=== PATIENT | female | born 1935 | race Caucasian/White ===

== ENCOUNTER 2016-04-01 12:18 | Emergency (ER) | payer OTHER ==
[~2016-04-01] VITALS: Ht 160 cm; Wt 45.4 kg
[~2016-04-01 12:18] MED LIST: VITAMIN D250000 UNIT PO
--- NOTE | 2016-04-01 15:31 | ED UPPER/LOWER EXTREMITY COMPL ---
History of Present Illness General Chief Complaint: General Adult Stated Complaint: RIGHT LEG PAIN "CANT WALK" Source: patient, family Exam Limitations: no limitations Allergies Coded Allergies: NO KNOWN ALLERGIES (10/27/15) No Known Drug Allergies (04/01/16) Triage Note: C/O PAIN IN RIGHT LEGT FROM HIP TO TOES, Triage Nurses Notes Reviewed? yes HPI: 81 YO FEMALE WITH HX OF OA WITH CO 2 DAYS OF R LATERAL HIP PAIN/LOW BACK PAIN, R LEG PAIN AND R ANKLE PAIN. NO TRAUMA, NO INJURY. SHE HAS PAIN WITH WALKING AND STATES SHE CAN NOT WALK TODAY. TOOK CODEINE LAST NIGHT WITH MINIMAL RELIEF. NO PAIN AT REST. SHE HAD AN XRAY IN SEPTEMBER OF THE L HIP THAT WAS NEGATIVE FOR HIP ARTHRITIS BUT LUMBAR FACET ARTHRITIS WAS NOTED. SHE WAS SENT TO SNF SHE COULD NOT WALK. TODAY SHE HAS SIMILAR SX ON THE R LEG. SHE HAD AN EPISODE OF BACK PAIN 1 MONTH AGO AND WAS TREATED WITH DICLOFENAC WHICH RESOLVED HER SYMPTOMS. SHE IS NOT ON NSAIDS AT THIS TIME. (JOHNNY COOPER) Vital Signs & Intake/Output Vital Signs & Intake/Output Vital Signs Date Time Temp Pulse Resp B/P Pulse O2 O2 Flow FiO2 Ox Delivery Rate 04/01 1732 98.8 84 20 160/92 96 Room Air 04/01 1232 95.5 86 20 138/95 99 Room Air Reconcile Medications Diclofenac Potassium 50 MG TABLET 1 TAB PO BID PRN PAIN Ergocalciferol (Vitamin D2) (Vitamin D2) 50,000 UNIT CAPSULE 1 CAP PO Q30D SUPPLEMENT (Reported) (CHANG CALVILLO,SANG Cabral) Past History Travel History Traveled to [place] past 21 day No Medical History Any Pertinent Medical History? see below for history Neurological: NONE EENT: NONE Cardiovascular: NONE Respiratory: NONE Gastrointestinal: NONE Hepatic: NONE Renal: NONE Musculoskeletal: osteoarthritis Psychiatric: NONE Endocrine: NONE Blood Disorders: NONE Surgical History Surgical History: non-contributory Psychosocial History What is your primary language Thai Tobacco Use: Never used ETOH Use: denies use Family History Hx Contributory? No (JOHNNY COOPER) Review of Systems Review of Systems Constitutional: Reports: see HPI. EENTM: Reports: no symptoms. Respiratory: Reports: no symptoms. Cardiovascular: Reports: no symptoms. Gastrointestinal/Abdominal: Reports: no symptoms. Genitourinary: Reports: no symptoms. Musculoskeletal: Reports: see HPI. Skin: Reports: no symptoms. Neurological/Psychological: Reports: no symptoms. Hematologic/Endocrine: Reports: no symptoms. Immunological: Reports: no symptoms. All Other Systems: Reviewed and Negative (JOHNNY COOPER) Physical Exam Physical Exam General Appearance: well developed/nourished Comments: Well-developed well-nourished no apparent distress. HEENT: Atraumatic, extraocular motion intact Neck: Supple, no lymphadenopathy Back: Nontender, full range of motion Respiratory: No respiratory distress Abdomen: Soft nontender nondistended Extremities: No edema, full range of motion Mild tenderness in the right lateral posterior pelvic region, right greater than trochanter region. Internal/external rotation of the hip results in mild pain to the right lateral hip with external rotation. She has no limited internal rotation. The knee and ankle exam is benign, she has full range of motion, neurovascularly intact Neuro: Alert and oriented x3 Psych: Mood affect normal, normal memory normal judgment. Skin: Warm and dry, no rash on exposed skin (JOHNNY COOPER) Progress Differential Diagnosis: arterial insufficiency, cellulitis, CHF, compartment syndrome, contusion, dislocation, DVT, fracture, gout, septic arthritis, sprain, tendon injury Plan of Care: Orders Procedure Date/time Status XRY-LUMBOSACRAL SPINE AP & LAT 04/01 1538 Active XRY-HIP 2-3 VIEWS, RIGHT 04/01 153 Active Current Medications Sig/Evelyn Start time Last Medication Dose Stop Time Status Admin Ketorolac 30 MG ONCE ONE 04/01 1545 UNVr Tromethamine 04/01 1546 (Toradol) Diagnostic Imaging: Viewed by Me: Radiology Read. Discussed w/RAD: Radiology Read. Radiology Impression: PATIENT: PRANAV CARMICHAEL PRESENT AGE: 81 PATIENT ACCOUNT NO: [id number] : 34 LOCATION: [facility] ORDERING PHYSICIAN: JOHNNY BENSON SERVICE DATE: 04/01/16 EXAM TYPE: RAD - XRY-HIP 2-3 VIEWS, RIGHT; XRY-LUMBOSACRAL SPINE AP & LAT EXAMINATION: XR LUMBOSACRAL SPINE XR HIP, RIGHT CLINICAL INFORMATION: Right hip pain COMPARISON: CT abdomen pelvis 01/20/2011 TECHNIQUE: 2 views of the lumbosacral spine. 2 views of the right hip. FINDINGS: Lumbosacral spine: Osseous alignment appears anatomic. Vertebral body heights are maintained. There is disc space narrowing at L2-L3, L3-L4, L4-L5, and L5-S1 with associated degenerative endplate changes. No acute fracture is seen. The sacroiliac joints are intact. Right hip: Osseous alignment is anatomic. Mild joint space narrowing is noted. The femoral head contour is maintained. No significant osteophytosis. No evidence of acute fracture. IMPRESSION: 1. Lumbosacral spine: Moderate degenerative change of the lumbar spine. 2. Right hip: Mild joint space narrowing. DICTATED BY: JESSICA CAPUTO MD DATE/TIME DICTATED:04/01/161555 ELEVATING GRADER OPERATOR:CLARA DATE/TIME TRANSCRIBED:04/01/161555 Comments: Patient given 30 mg Toradol IM and Tylenol with codeine. She was able to ambulate with minimal difficulty She was seen by case packer and we will set up home services for for physical therapy, she was referred to an orthopedist, will treat her with anti- inflammatory medication as outpatient and she has tolerated with codeine at home. She is stable for discharge home, discussed with Dr. Sheehan. (JOHNNY COOPER) Departure Departure Disposition: HOME OR SELF CARE Condition: Stable Clinical Impression Primary Impression: Sciatica associated with disorder of lumbar spine Referrals: BRISEIDA CALVILLO,JUAN DAVID Kelly (PCP/Family) ATTILA CALVILLO,LOLITA Huang Additional Instructions: Take medications for pain and inflammation as needed. Rest, warm compresses, gentle stretching. Follow-up with orthopedist if no better in the next 5-7 days. Watch for worsening symptoms of pain, numbness or weakness down the leg, return with any concerns. Departure Forms: Customer Survey General Discharge Information Prescriptions: Current Visit Scripts Diclofenac Potassium 1 TAB PO BID PRN PAIN #30 TAB (JOHNNY COOPER) PA/MARKETING PROGRAMS SPECIALIST Co-Sign Statement Statement: ED Attending supervision documentation- [X] I saw and evaluated the patient. I have also reviewed all the pertinent lab results and diagnostic results. I agree with the findings and the plan of care as documented in the PA's/MARKETING PROGRAMS SPECIALIST's documentation. [] I have reviewed the ED Record and agree with the PA's/MARKETING PROGRAMS SPECIALIST's documentation. [] Additions or exceptions (if any) to the PAs/MARKETING PROGRAMS SPECIALIST's note and plan are summarized below: [] (CHANG CALVILLO,SANG Marr
--- NOTE | 2016-04-01 16:07 | RADIOLOGY REPORT ---
EXAMINATION: XR LUMBOSACRAL SPINE XR HIP, RIGHT CLINICAL INFORMATION: Right hip pain COMPARISON: CT abdomen pelvis 01/20/2011 TECHNIQUE: 2 views of the lumbosacral spine. 2 views of the right hip. FINDINGS: Lumbosacral spine: Osseous alignment appears anatomic. Vertebral body heights are maintained. There is disc space narrowing at L2-L3, L3-L4, L4-L5, and L5-S1 with associated degenerative endplate changes. No acute fracture is seen. The sacroiliac joints are intact. Right hip: Osseous alignment is anatomic. Mild joint space narrowing is noted. The femoral head contour is maintained. No significant osteophytosis. No evidence of acute fracture. IMPRESSION: 1. Lumbosacral spine: Moderate degenerative change of the lumbar spine. 2. Right hip: Mild joint space narrowing.
[2016-04-01] MEDS ORDERED: DICLOFENAC POTA50 M1 PO (17:17)
[2016-04-01 17:32] VITALS: BP 160/92
--- NOTE | 2016-04-01 17:45 | NUR ---
Case Mgmnt TSF: I called [facility] after meeting with patient. I asked for set up of services. They will look into availability and call me back. CM continuing to follow.
--- NOTE | 2016-04-01 18:20 | NUR ---
Case Mgmnt TSF: I was called back by [facility] and they will be able to accept the patient on service on Tuesday for nursing and home pt. They stated that if they get a cancellation on Tuesday they will fit the patient in for services. I will call the patient and make her aware of this. CM continuing to follow.
--- NOTE | 2016-04-01 18:45 | NUR ---
Case Mgmnt TSF: I placed a call to patient's home to ask her to call me back. I left a basic message for call back. CM continuing to follow.
--- NOTE | 2016-04-01 19:31 | NUR ---
Case Mgmnt TSF: Patient called back and I updated as to when agency would go out and if there was a cancellation it would be sooner. They are fine with plan at this time.
== END 2016-04-01 17:35 ==
LOC: ERH 12:18
DX: M51.17 Intervertebral disc disorders with radiculopathy, lumbosacral region (principal)
CPT/HCPCS: 72100; 73502-RT; 96372; J1885

== ENCOUNTER 2016-04-25 16:16 | Emergency (ER) | payer OTHER ==
[~2016-04-25] VITALS: Ht 160 cm; Wt 53.5 kg
[~2016-04-25 16:16] MED LIST changes: +DICLOFENAC POTA50 M1 PO
--- NOTE | 2016-04-25 17:04 | ED GI/GU/ABDOMINAL COMPLAINT ---
History of Present Illness General Chief Complaint: Abdominal Pain/Flank Pain Stated Complaint: ABD PAIN Source: patient, family, old records Exam Limitations: no limitations Vital Signs & Intake/Output Vital Signs & Intake/Output Vital Signs Date Time Temp Pulse Resp B/P Pulse O2 O2 Flow FiO2 Ox Delivery Rate 04/25 1921 97.4 91 22 146/78 95 Room Air 04/25 1733 Room Air Room Air 04/25 1626 98.4 98 18 155/100 98 Room Air Allergies Coded Allergies: NO KNOWN ALLERGIES (10/27/15) No Known Drug Allergies (04/01/16) Reconcile Medications Ciprofloxacin HCl 500 MG TABLET 1 TAB PO BID UTI (Reported) Ergocalciferol (Vitamin D2) (Vitamin D2) 50,000 UNIT CAPSULE 1 CAP PO Q30D SUPPLEMENT (Reported) Triage Note: PT TO ER C/C DIFFUSE ABD PAIN INTERMITTENT SINCE TUESDAY. WENT TO WALK IN CLINIC ON TUESDAY, DIAGNOSED W/ UTI AND STARTED ON CIPRO. STATES NO CHANGE IN SYMPTOMS. + MILD NAUSEA. DENIES V/D, DENIES URINARY PAIN OR FREQUENCY. DENIES FEVERS Triage Nurses Notes Reviewed? yes ? n Is pt currently ? No HPI: Patient is an 81-year-old female presents complaining of diffuse lower abdominal pain. Patient began with left-sided abdominal pain onset on . Tuesday patient was seen at an urgent care clinic, had a urinalysis which was reportedly positive for urinary tract infection, started on ciprofloxacin and instructed to come to the emergency department if any worsening. Patient reports that she felt improved for one day then today her pain worsen. Patient has had 2 bowel movements today which were reportedly normal. Patient denies fevers, chills, nausea, vomiting, dysuria, hematuria, frequency, urgency. (JOHNNY MORIN) Past History Travel History Traveled to [place] past 21 day No Medical History Any Pertinent Medical History? see below for history Neurological: NONE EENT: NONE Cardiovascular: NONE Respiratory: NONE Gastrointestinal: diverticulosis Hepatic: NONE Renal: NONE Musculoskeletal: osteoarthritis Psychiatric: NONE Endocrine: NONE Blood Disorders: NONE Influenza Vaccine: 01/09/16 Surgical History Surgical History: non-contributory Psychosocial History What is your primary language Urdu Tobacco Use: Never used Family History Hx Contributory? No (JOHNNY MORIN) Review of Systems Review of Systems Constitutional: Denies: chills, fever. EENTM: Reports: no symptoms. Respiratory: Denies: cough, short of breath. Cardiovascular: Denies: chest pain. GI: Reports: see HPI. Genitourinary: Denies: dysuria, frequency, hematuria. Musculoskeletal: Denies: back pain. Skin: Reports: no symptoms. Neurological/Psychological: Reports: no symptoms. Hematologic/Endocrine: Reports: no symptoms. Immunologic/Allergic: Reports: no symptoms. (JOHNNY MORIN) Physical Exam Physical Exam General Appearance: well developed/nourished, alert, awake Head: atraumatic, normal appearance Eyes: Bilateral: normal appearance, PERRL, EOMI. Ears, Nose, Throat, Mouth: hearing grossly normal, moist mucous membrane Neck: normal inspection, supple, full range of motion Respiratory: normal breath sounds, no respiratory distress, lungs clear Cardiovascular: regular rate/rhythm Gastrointestinal: normal bowel sounds, soft, mild diffuse lower abdominal tenderness. No rebound, rigidity, guarding Back: normal inspection, normal range of motion Extremities: normal range of motion Neurologic/Psych: no motor/sensory deficits, awake, alert, oriented x 3, normal gait, normal mood/affect Skin: intact, normal color, warm/dry Core Measures ACS in differential dx? No Severe Sepsis Present: No Septic Shock Present: No (JOHNNY MORIN) Progress Differential Diagnosis: AAA, bowel obstruction, cholecystitis, diverticulitis, gastritis, hepatitis, ischemic bowel, inflamm bowel dis, kidney stone, ovarian cyst, ovarian torsion, perforated viscous, UTI/pyelo Plan of Care: Orders Procedure Date/time Status URINALYSIS 04/25 1708 Complete LIPASE 04/25 1708 Complete LACTIC ACID 04/25 1708 Complete COMPREHENSIVE METABOLIC PANEL 04/25 1708 Complete CBC WITHOUT DIFFERENTIAL 04/25 1708 Complete AMYLASE 04/25 1708 Complete EKG 04/25 161 Active Laboratory Tests 04/25/16 2009: Lactic Acid Cancelled 04/25/16 1725: Anion Gap 10, Estimated GFR > 60, BUN/Creatinine Ratio 28.8 H, Glucose 92, Lactic Acid 0.7, Calcium 9.4, Total Bilirubin 0.5, AST 30, ALT 33, Alkaline Phosphatase 57, Total Protein 7.2, Albumin 3.9, Globulin 3.3, Albumin/Globulin Ratio 1.2, Amylase 104, Lipase 300, CBC w Diff NO MAN DIFF REQ, RBC 4.64, MCV 85.0, MCH 28.3, RDW 13.8, MPV 8.2, Gran % 71.2, Lymphocytes % 19.0 L, Monocytes % 7.8, Eosinophils % 1.3, Basophils % 0.7, Absolute Granulocytes 4.7, Absolute Lymphocytes 1.3, Absolute Monocytes 0.5, Absolute Eosinophils 0.1, Absolute Basophils 0, PUBS MCHC 33.3 04/25/16 1714: Urine Color YEL, Urine Clarity CLEAR, Urine pH 6.5, Ur Specific [place] 1.020, Urine Protein NEG, Urine Ketones NEG, Urine Nitrite NEG, Urine Bilirubin NEG, Urine Urobilinogen 0.2, Ur Leukocyte Esterase NEG, Ur Microscopic EXAM NOT REQUIRED, Urine Hemoglobin NEG, Urine Glucose NEG Discussed with Dr. Ramirez. Patient reevaluated multiple times. Results of labs and imaging discussed with patient and her son. No peritoneal signs on exam, labs unremarkable, no acute infectious or surgical abnormalities on CT scan. Patient appears stable for discharge. Discussed bowel regimen with patient and her son and to follow-up with her primary care doctor this week for further evaluation. To return to the emergency department if worsening. (SUYAPA BENSON,JOHNNY) Diagnostic Imaging: Viewed by Me: CT Scan. Discussed w/RAD: CT Scan. Radiology Impression: PATIENT: PRANAV CARMICHAEL PRESENT AGE: 81 PATIENT ACCOUNT NO: [id number] : 34 LOCATION: [facility] ORDERING PHYSICIAN: JOHNNY BENSON SERVICE DATE: 04/25/16 EXAM TYPE: CAT - CT ABD & PELVIS W IV CONTRAST EXAMINATION: CT ABDOMEN AND PELVIS WITH CONTRAST CLINICAL INFORMATION: Diffuse lower abdominal pain. Evaluate for diverticulitis. COMPARISON: CT abdomen and pelvis 01/20/2011. TECHNIQUE: Multidetector volumetric imaging was performed of the abdomen and pelvis before and after the IV administration of 95 mL of Optiray 320 intravenous contrast. Sagittal and coronal reformatted images were obtained on the technologist's workstation. DLP: 269 mGy-cm. FINDINGS: LUNG BASES: The visualized lung bases are unremarkable. LIVER, GALLBLADDER, AND BILIARY TREE: The liver is normal in size, shape, and attenuation. No focal hepatic lesion or biliary ductal dilatation is present. The gallbladder is contracted, without evidence of radiopaque gallstones, gallbladder wall thickening, or obvious pericholecystic inflammatory changes. PANCREAS: Unremarkable. SPLEEN: Unremarkable. ADRENAL GLANDS: Unremarkable. KIDNEYS AND URETERS: The kidneys are normal in size and enhance homogeneously, without focal lesions. There is no appreciable nephrolithiasis or hydroureteronephrosis of either kidney or renal collecting system. No ureteral stones are identified. BLADDER: Unremarkable. GASTROINTESTINAL TRACT: Limited evaluation of the gastrointestinal system secondary to scant intra-abdominal fat. There is a moderate amount of retained stool throughout the colon, indicative of constipation. There is minimal colonic diverticulosis, without secondary signs of acute diverticulitis. Nonvisualization of the appendix. No acute inflammatory changes within the right hemiabdomen. No organizing intra- abdominal or pelvic fluid collections and no free intraperitoneal air. ABDOMINAL WALL: No significant hernia is appreciated. LYMPH NODES: No significant abdominal or pelvic adenopathy. VASCULAR: Patent abdominal vasculature. Normal course and caliber of the abdominal aorta and its branching vessels, without aneurysmal dilatation. Scattered atherosclerosis of the abdominal aorta and its branching vessels. PELVIC VISCERA: Unremarkable. OSSEOUS STRUCTURES: No acute osseous abnormality. Moderate multilevel degenerative changes of the lumbar spine. Multilevel facet arthrosis. IMPRESSION: Limited exam secondary to scant intra-abdominal fat. There is a moderate amount of retained stool throughout the colon, indicative of constipation. Minimal colonic diverticulosis, without secondary signs of acute diverticulitis. DICTATED BY: AMY MARTINEZ MD DATE/ TIME DICTATED:04/25/161842 CARGO VESSEL STEWARDESS:CLARA DATE/TIME TRANSCRIBED: 04/25/161842 CONFIDENTIAL, DO NOT COPY WITHOUT APPROPRIATE AUTHORIZATION. < Electronically signed in Other Vendor System> SIGNED BY: AMY MARTINEZ MD 04/25/161852 Initial ED EKG: normal sinus rhythm 92 bpm normal axis, normal intervals, minimal ST depression in leads V3 and V4 (JOHNNY MORIN) Departure Departure Time of Disposition: 1911 Disposition: HOME OR SELF CARE Condition: Stable Clinical Impression Primary Impression: Constipation Qualifiers: Constipation type: unspecified constipation type Qualified Code: K59.00 - Constipation, unspecified Secondary Impressions: Abdominal pain Qualifiers: Abdominal location: lower abdomen, unspecified Qualified Code: R10.30 - Lower abdominal pain, unspecified Referrals: BRISEIDA CALVILLO,JUAN DAVID Kelly (PCP/Family) Additional Instructions: Increase your fluid intake. Take Colace as directed. If it has not improved her bowel movements and tomorrow morning started taking MiraLAX as directed. Follow-up with your primary doctor this week for recheck and further evaluation. Return to the emergency department if fevers, increasing pain, vomiting, or worsening of symptoms. Departure Forms: Customer Survey General Discharge Information (JOHNNY MORIN) PA/CAKE PULLER Co-Sign Statement Statement: ED Attending supervision documentation- x I saw and evaluated the patient. I have also reviewed all the pertinent lab results and diagnostic results. I agree with the findings and the plan of care as documented in the PA's/CAKE PULLER's documentation. [] I have reviewed the ED Record and agree with the PA's/CAKE PULLER's documentation. [] Additions or exceptions (if any) to the PAs/CAKE PULLER's note and plan are summarized below: [] (STEPHEN CALVILLO,FRIEDA)
[2016-04-25] MEDS ORDERED: CIPROFLOXACIN500 M2 PO (17:33)
[2016-04-25 17:41] LABS: ABSOLUTE BASOPHIL COUNT 0 /CUMM (0.0-0.2); ABSOLUTE EOSINOPHIL COUNT 0.1 /CUMM (0.0-0.7); ABSOLUTE GRANULOCYTE CT 4.7 /CUMM (1.4-6.5); ABSOLUTE LYMPH COUNT 1.3 /CUMM (1.2-3.4); ABSOLUTE MONOCYTE COUNT 0.5 /CUMM (0.10-0.60); BASOPHIL % 0.7 % (0.0-2.0); EOSINOPHIL % 1.3 % (0-5); GRANULOCYTE % 71.2 % (42.2-75.2); HEMATOCRIT 39.5 % (37-47); MEAN CORPUSCULAR HGB 28.3 PG (27.0-31.0); MEAN CORPUSCULAR HGB CONC 33.3 G/DL (33.0-37.0); MEAN PLATELET VOLUME 8.2 FL (7.4-10.4); PLATELET COUNT 229 /CUMM (130-400); RBC DISTRIBUTION WIDTH 13.8 % (11.5-14.5); RED BLOOD CELL CT 4.64 /CUMM (4.20-5.40); WHITE BLOOD CELL COUNT 6.6 /CUMM (4.8-10.8)
--- NOTE | 2016-04-25 18:53 | CT SCAN REPORT ---
EXAMINATION: CT ABDOMEN AND PELVIS WITH CONTRAST CLINICAL INFORMATION: Diffuse lower abdominal pain. Evaluate for diverticulitis. COMPARISON: CT abdomen and pelvis 01/20/2011. TECHNIQUE: Multidetector volumetric imaging was performed of the abdomen and pelvis before and after the IV administration of 95 mL of Optiray 320 intravenous contrast. Sagittal and coronal reformatted images were obtained on the technologist's workstation. DLP: 269 mGy-cm. FINDINGS: LUNG BASES: The visualized lung bases are unremarkable. LIVER, GALLBLADDER, AND BILIARY TREE: The liver is normal in size, shape, and attenuation. No focal hepatic lesion or biliary ductal dilatation is present. The gallbladder is contracted, without evidence of radiopaque gallstones, gallbladder wall thickening, or obvious pericholecystic inflammatory changes. PANCREAS: Unremarkable. SPLEEN: Unremarkable. ADRENAL GLANDS: Unremarkable. KIDNEYS AND URETERS: The kidneys are normal in size and enhance homogeneously, without focal lesions. There is no appreciable nephrolithiasis or hydroureteronephrosis of either kidney or renal collecting system. No ureteral stones are identified. BLADDER: Unremarkable. GASTROINTESTINAL TRACT: Limited evaluation of the gastrointestinal system secondary to scant intra-abdominal fat. There is a moderate amount of retained stool throughout the colon, indicative of constipation. There is minimal colonic diverticulosis, without secondary signs of acute diverticulitis. Nonvisualization of the appendix. No acute inflammatory changes within the right hemiabdomen. No organizing intra-abdominal or pelvic fluid collections and no free intraperitoneal air. ABDOMINAL WALL: No significant hernia is appreciated. LYMPH NODES: No significant abdominal or pelvic adenopathy. VASCULAR: Patent abdominal vasculature. Normal course and caliber of the abdominal aorta and its branching vessels, without aneurysmal dilatation. Scattered atherosclerosis of the abdominal aorta and its branching vessels. PELVIC VISCERA: Unremarkable. OSSEOUS STRUCTURES: No acute osseous abnormality. Moderate multilevel degenerative changes of the lumbar spine. Multilevel facet arthrosis. IMPRESSION: Limited exam secondary to scant intra-abdominal fat. There is a moderate amount of retained stool throughout the colon, indicative of constipation. Minimal colonic diverticulosis, without secondary signs of acute diverticulitis.
[2016-04-25 19:21] VITALS: BP 146/78
== END 2016-04-25 19:23 ==
LOC: ERH 16:16
PROVIDERS: Physician Assistant
DX: K59.00 Constipation, unspecified (principal)
CPT/HCPCS: 74177; 81003; 93005; 93010; 96360; 96361